=== PATIENT | female | born 1950 | race African-American/Black ===

== ENCOUNTER 2020-11-24 10:10 | Emergency (ER) | payer BC ==
[2020-11-24 10:18] VITALS: BP 127/72; PULSE 84; TEMP 97.9; BMI 29.7
[2020-11-24] MEDS ORDERED: KETOROLAC TROMETHAMINE 60 MG/2 ML VIAL IM ONE (11:24)
[2020-11-24] MEDS ORDERED: KETOROLAC TROMETHAMINE 60 MG/2 ML VIAL ONE (11:24)
== END 2020-11-24 11:00 | disposition home or self-care (01) ==
LOC: JERFT 10:10
PROC: 3E0233Z Introduction of Anti-inflammatory into Muscle, Percutaneous Approach (ICD-10-PCS; principal; 2020-11-24)
DX: M54.50 Low back pain, unspecified (principal)
CPT/HCPCS: 96372; 99284-25

== ENCOUNTER 2021-03-06 17:38 | Inpatient (IN) | payer BC ==
[2021-03-06] MEDS ORDERED: MAG HYDROX/AL HYDROX/SIMETH 30 ML UNIT-DOSE CUP PO ONE (19:07)
[2021-03-06] MEDS ORDERED: FAMOTIDINE 20 MG/50 ML IVPB 20 MG/50 ML MG IVPB ONE ×2 (19:07→19:59)
[2021-03-06 19:34] LABS: BASO % 0.5 % (0-2.0); EOS % 2.3 % (0-4.5); HEMATOCRIT 37.4 % (32.4-45.2); HEMOGLOBIN 12.7 GM/dL (10.7-15.3); MCH 30.2 pg (25.7-33.7); MEAN CELL VOLUME 89.1 fl (80-96); MEAN PLT VOLUME 8.7 fl (7.5-11.1); MONO % 6.8 % (3.8-10.2); NEUT % 57.4 % (42.8-82.8); PLATELET COUNT 192 10^3/uL (134-434); RDW 13.5 % (11.6-15.6)
[2021-03-06] MEDS ORDERED: MAG HYDROX/AL HYDROX/SIMETH 30 ML UNIT-DOSE CUP ONE (19:59)
[2021-03-06 20:09] LABS: INR 1.02 (0.83-1.09); PROTHROMBIN TIME (PATIENT) 11.7 SEC (9.7-13.0)
[2021-03-06 20:12] LABS: ACTIVATED PTT 30.4 SECONDS (25.2-36.5)
[2021-03-06 20:32] LABS: CHLORIDE 109 mmol/L (98-107); SODIUM 141 mmol/L (136-145)
[2021-03-06 20:34] LABS: ALBUMIN 3.8 g/dl (3.4-5.0); CALCIUM 8.9 mg/dL (8.5-10.1)
[2021-03-06 20:35] LABS: ANION GAP 6 MMOL/L (8-16); BLOOD UREA NITROGEN 13.2 mg/dL (7-18); CO2 26 mmol/L (21-32); GLUCOSE,RANDOM 85 mg/dL (74-106); MAGNESIUM 2.2 mg/dL (1.8-2.4)
[2021-03-06 20:37] LABS: SGPT/ALT 19 U/L (13-61)
[2021-03-06 20:38] LABS: CREATININE 0.9 mg/dL (0.55-1.3); SGOT/AST 20 U/L (15-37)
[2021-03-06 20:39] LABS: BILIRUBIN,TOTAL 0.3 mg/dL (0.2-1); TOT PROT 7.5 g/dl (6.4-8.2)
[2021-03-06 20:40] LABS: ALK PHOS 75 U/L (45-117)
[2021-03-06] MEDS ORDERED: ASPIRIN 81 MG CHEWABLE TABLETS PO ONE (20:59)
[2021-03-06] MEDS ORDERED: amLODIPine BESYLATE 5 MG TABLET (FP) PO ONE (21:00)
[2021-03-06] MEDS ORDERED: ASPIRIN 81 MG CHEWABLE TABLETS ONE (21:11)
[2021-03-06] MEDS ORDERED: amLODIPine BESYLATE 5 MG TABLET (FP) ONE (21:11)
[2021-03-07 02:36] VITALS: BMI 25.2
[2021-03-07 08:49] LABS: BASO % 0.4 % (0-2.0); EOS % 2.1 % (0-4.5); HEMATOCRIT 35.7 % (32.4-45.2); HEMOGLOBIN 12.3 GM/dL (10.7-15.3); LYMPH % 31.2 % (8-40); MCH 30.7 pg (25.7-33.7); MCHC 34.5 g/dl (32.0-36.0); MEAN CELL VOLUME 88.9 fl (80-96); MEAN PLT VOLUME 8.3 fl (7.5-11.1); NEUT % 59.3 % (42.8-82.8); PLATELET COUNT 179 10^3/uL (134-434); RBC 4.02 M/mm3 (3.60-5.2); RDW 13.5 % (11.6-15.6); WHITE BLOOD COUNT 5.6 K/mm3 (4.0-10.0)
[2021-03-07 09:03] LABS: CALCIUM 8.6 mg/dL (8.5-10.1)
[2021-03-07 09:04] LABS: ALBUMIN 3.4 g/dl (3.4-5.0); MAGNESIUM 2.1 mg/dL (1.8-2.4)
[2021-03-07 09:07] LABS: CREATININE 0.9 mg/dL (0.55-1.3); PHOSPHOROUS 3.5 mg/dL (2.5-4.9)
[2021-03-07 09:09] LABS: BILIRUBIN,TOTAL 0.5 mg/dL (0.2-1); TOT PROT 6.8 g/dl (6.4-8.2)
[2021-03-07 09:16] LABS: CHOLESTEROL 228 mg/dL (50-200); LDL CHOLESTEROL (ONLY SJRH) 143 mg/dL (5-100); TRIGLYCERIDES 133 mg/dL (0-150)
[2021-03-07 09:20] LABS: HDL CHOLESTEROL 48 mg/dL (40-60)
[2021-03-07] MEDS: metoPROLOL SUCCINATE 25 MG TAB.SR.24H (FP) PO SCH (09:33)
[2021-03-07] MEDS: NICOTINE 14 MG/24 HOURS TOPICAL PATCH TD SCH ×2 (09:33→09:38)
[2021-03-07] MEDS: ENOXAPARIN NA (PORCINE) 40 MG/0.4 ML DISP.SYRIN SQ SCH (09:34)
[2021-03-07] MEDS ORDERED: HYDROCHLOROTHIAZIDE 12.5 MG CAPSULE (FP) PO SCH (10:00)
[2021-03-07] MEDS ORDERED: LISINOPRIL 10 MG TABLET PO SCH (22:00)
[2021-03-07] MEDS ORDERED: ROSUVASTATIN CA 20 MG TABLET PO SCH (22:00)
[2021-03-08 09:06] VITALS: BP 146/75; PULSE 64; TEMP 98
[2021-03-08] MEDS: ENOXAPARIN NA (PORCINE) 40 MG/0.4 ML DISP.SYRIN SQ SCH (09:39)
[2021-03-08] MEDS: metoPROLOL SUCCINATE 25 MG TAB.SR.24H (FP) PO SCH (09:39)
[2021-03-08] MEDS: NICOTINE 14 MG/24 HOURS TOPICAL PATCH TD SCH (09:43)
[2021-03-08] MEDS ORDERED: ASPIRIN COATED 81 MG TABLET.EC PO SCH (10:00)
== END 2021-03-08 15:43 | disposition home or self-care (01) | DRG 311 ==
LOC: JER 17:38 → JERBED 22:53 → J4W 03-07 01:42
PROVIDERS: ADMIT Internal Medicine; ATTEND Internal Medicine
DX: I24.8 Other forms of acute ischemic heart disease (principal); I10 Essential (primary) hypertension; R07.89 Other chest pain; E66.9 Obesity, unspecified; E03.9 Hypothyroidism, unspecified; E78.5 Hyperlipidemia, unspecified; F17.210 Nicotine dependence, cigarettes, uncomplicated; Z68.25 Body mass index [BMI] 25.0-25.9, adult
CPT/HCPCS: 36415; 71045-TC-FY; 80053; 80061; 82550; 82553; 83735; 84100; 84439; 84443; 84484; 85025; 85610; 85730; 93005; 93010; 99285-25; C9803; U0003; U0005

== ENCOUNTER 2022-05-14 04:39 | Day surgery (SDC) | payer OTHER ==
[2022-05-13 13:20] VITALS: BMI 30.5
[2022-05-14] MEDS ORDERED: ETOMIDATE 20 MG/10 ML VIAL IVPUSH ONE (11:54)
[2022-05-14 12:20] VITALS: TEMP 97.8
[2022-05-14 13:06] VITALS: BP 123/59; PULSE 71; RESP 14
== END 2022-05-14 13:06 | disposition home or self-care (01) ==
LOC: JASU-ENDO 04:39
PROVIDERS: ATTEND Internal Medicine Gastroenterology
PROC: 0DBN8ZX Excision of Sigmoid Colon, Via Natural or Artificial Opening Endoscopic, Diagnostic (ICD-10-PCS; 2022-05-14)
PROC: 0D5P8ZZ Destruction of Rectum, Via Natural or Artificial Opening Endoscopic (ICD-10-PCS; principal; 2022-05-14 12:00)
DX: Z12.11 Encounter for screening for malignant neoplasm of colon (principal); Z86.010 Personal history of colon polyps; K64.8 Other hemorrhoids; K57.30 Diverticulosis of large intestine without perforation or abscess without bleeding; K62.1 Rectal polyp; D12.5 Benign neoplasm of sigmoid colon
CPT/HCPCS: 88305-TC

== ENCOUNTER 2022-08-31 08:34 | Emergency (ER) | payer OTHER ==
[2022-08-31 08:46] VITALS: TEMP 98.2; BMI 30.5
[2022-08-31] MEDS ORDERED: ACETAMINOPHEN 1000 MG/100 ML BAG IVPB ONE (10:20)
[2022-08-31] MEDS ORDERED: ACETAMINOPHEN INJECTION 100 ML IVPB ONE (10:41)
[2022-08-31 11:10] LABS: BASO % 0.5 % (0-2.0); LYMPH % 20.6 % (8-40); MCH 29.2 pg (25.7-33.7); MCHC 32.4 g/dl (32.0-36.0); MEAN CELL VOLUME 90.2 fl (80-96); MEAN PLT VOLUME 8.8 fl (7.5-11.1); MONO % 9.2 % (3.8-10.2); NEUT % 67.7 % (42.8-82.8); PLATELET COUNT 183 10^3/uL (134-434); RBC 4.11 M/mm3 (3.60-5.2); RDW 13.5 % (11.6-15.6)
[2022-08-31 11:31] LABS: POTASSIUM 4.3 mmol/L (3.5-5.1)
[2022-08-31 11:34] LABS: CALCIUM 8.5 mg/dL (8.5-10.1)
[2022-08-31 11:35] LABS: ALBUMIN 3.4 g/dl (3.4-5.0)
[2022-08-31 11:36] LABS: EPI CELLS 14 /uL (0-25.1); HYALINE CASTS 0 /uL (0-3.1); URINE APPEARANCE CLEAR; URINE BACTERIA 139 /uL (0-1359); URINE BILIRUBIN NEGATIVE (NEGATIVE); URINE COLOR YELLOW; URINE GLUCOSE (UA) NEGATIVE (NEGATIVE); URINE KETONE NEGATIVE (NEGATIVE); URINE LEUK ESTERASE 1+ (NEGATIVE); URINE NITRITE NEGATIVE (NEGATIVE); URINE PROTEIN NEGATIVE (NEGATIVE); URINE RBC 63 /uL (0-23.9); URINE WBC 15 /uL (0-25.8)
[2022-08-31 11:38] LABS: CREATININE 0.8 mg/dL (0.55-1.3)
[2022-08-31 11:39] LABS: BILIRUBIN,TOTAL 1.1 mg/dL (0.2-1); TOT PROT 7.4 g/dl (6.4-8.2)
[2022-08-31] MEDS ORDERED: CEPHALEXIN 250 MG/5 ML ORAL SUSPENSION PO ONE (12:43)
[2022-08-31] MEDS ORDERED: CEPHALEXIN MONOHYDRATE 500 MG CAPSULE (UD) PO ONE (12:50)
[2022-08-31] MEDS ORDERED: CEPHALEXIN MONOHYDRATE 500 MG CAPSULE (UD) ONE (12:51)
[2022-08-31 13:06] VITALS: BP 139/47; PULSE 65; RESP 18
== END 2022-08-31 13:22 | disposition home or self-care (01) ==
LOC: JER 08:34
PROC: 3E033NZ Introduction of Analgesics, Hypnotics, Sedatives into Peripheral Vein, Percutaneous Approach (ICD-10-PCS; principal; 2022-08-31)
DX: R53.1 Weakness (principal); N39.0 Urinary tract infection, site not specified
CPT/HCPCS: 36415; 71045-TC-FY; 80053; 81003; 85025; 87086; 93005; 93010; 99285-25